=== PATIENT | male | born 1965 | race African-American/Black ===

== ENCOUNTER 2019-06-06 19:52 | Observation (INO) | payer SELFPAY ==
[2019-06-06] MEDS ORDERED: Nitroglycerin 2% Ointment 1 INCH/1 GM Packet ONE (20:29)
[2019-06-06 20:48] LABS: Troponin I Less than 0.010 ng/mL (< 0.028)
[2019-06-06 23:41] LABS: Troponin I Less than 0.010 ng/mL (< 0.028)
[2019-06-07 02:10] VITALS: BMI 19.0
[2019-06-07] MEDS ORDERED: Nitroglycerin 0.4 MG TAB (25 Tab Bottle) PO PRN (02:43)
[2019-06-07] MEDS ORDERED: hydrALAZINE 20 MG/ML VIAL SLOW IVP PRN (02:46)
[2019-06-07] MEDS ORDERED: Ondansetron ODT 4 MG TAB PO PRN (02:46)
[2019-06-07] MEDS ORDERED: Lorazepam 0.5 MG TAB PO PRN (02:46)
[2019-06-07] MEDS ORDERED: Acetaminophen 500 MG TAB PO PRN (02:46)
[2019-06-07] MEDS ORDERED: Labetalol HCl 100 MG/20 ML VIAL SLOW IVP PRN (02:46)
[2019-06-07 02:50] LABS: Troponin I Less than 0.010 ng/mL (< 0.028)
--- NOTE | 2019-06-07 04:49 | HP ---
CHIEF COMPLAINT: Chest pain. HISTORY OF PRESENT ILLNESS: The patient is a 54-year-old male with past medical history significant for a 30 pack-year smoking history and a current 1 pack per day habit, chronic alcoholism, who presented to the hospital with complaints of chest pain. The patient states that the chest pain radiated up into his neck. A family member brought him to the [place] emergency department for further workup and treatment. He was given a sublingual nitroglycerin, which he states did relieve his discomfort. He has had no further discomfort since having nitro paste placed on his chest. A workup on arrival has included an EKG, which shows sinus rhythm with a ventricular rate of 56 beats per minute, along with voltage criteria meeting LVH and early repolarization. His serial troponins have been negative. REVIEW OF SYSTEMS: A 12-point review of systems performed and is negative except as stated above. PAST MEDICAL HISTORY SURGERY: The patient has no known past medical history. He states he does not see a PCP and has not been to the doctor in many years. He has had elevated blood pressure readings this hospitalization and even with nitroglycerin paste on his chest, his systolic blood pressure is 161, I would I do suspect underlying hypertension. He has had no recent blood work. No other known past medical history or past surgical history. Knee lacerations, status post stitching with 18 stitches, no other past surgical history. SOCIAL HISTORY: As mentioned, the patient is a 1 pack per day smoker, with a 30 pack-year total history. He drinks approximately 12 beers per day. He denies illicit drug use. He lives with his aunt in [place] and has a fairly physical job on a farm. He has 2 children. ALLERGIES: NO KNOWN DRUG ALLERGIES. CURRENT MEDICATIONS: None. PHYSICAL EXAMINATION: VITAL SIGNS: Blood pressure 161/93, pulse is 70, O2 saturation is 96% on room air, respirations are 18. GENERAL: This is a thin male with poor dentition, resting comfortably in bed. HEENT: Head atraumatic, normocephalic. Mucous membranes are moist. NECK: Trachea is midline. No JVD. CV: S1 and S2. Regular rate and rhythm. No appreciable murmurs, rubs, or gallops. LUNGS: Regular respiratory rate and pattern, overall clear to auscultation bilaterally. ABDOMEN: Positive bowel sounds. Soft, nontender. EXTREMITIES: No edema. SKIN: Warm and dry. NEUROLOGIC: Cranial nerves 2 through 12 are grossly intact. The patient is nonfocal. Alert and oriented x3. LABORATORY DATA: White blood cell count 12.3, hemoglobin 13.8, hematocrit 43.9, platelets are 319. Sodium 138, potassium 4.1, BUN 8, creatinine 1. AST, ALT normal, alkaline phosphatase 86. Troponin is negative x3. BNP is 26. ASSESSMENT: 1. Chest pain with typical and atypical features, patient does report pain that radiates to the neck and was relieved with nitroglycerin. 2. Current 1 pack per day smoking habit with a 30 pack-year history of tobacco abuse. 3. Abnormal EKG-left ventricular hypertrophy and early repolarization. 4. Chronic alcoholism. 5. Previously undiagnosed hypertension. PLAN: Given the patient's risk factors and presenting symptoms. We will risk stratify with stress test. I also believe that the patient would benefit from an echocardiogram given the impressive LVH noted on his EKG. I suspect this may be a result of untreated hypertension over the years. We will obtain a fasting lipid profile. The patient has been intermittently bradycardic, and so we will start an ARB for blood pressure control. We will continue aspirin 81 mg daily. Given his chronic alcoholism, we will add p.r.n. Ativan for anxiety or any withdrawal symptoms, along with daily thiamine supplement. Further recommendations based on findings of noninvasive testing and hospital course. Job ID: [id number]
[2019-06-07 05:53] LABS: Cardiac Risk 2.5 (Less than 4.5)
[2019-06-07 09:04] LABS: #Basophils 0.1 thou/uL (0.0-0.2); #Eosinphils 0.1 thou/uL (0.0-0.7); #Lymphocytes 2.4 thou/uL (1.20-3.40); #Monocytes 0.9 thou/uL (0.11-0.59); #Neutrophils 4.1 thou/uL (1.40-6.50); %Eosinophils 0.9 % (0.0-10.0); %Lymphocytes 31.6 % (21.0-51.0); %Monocytes 11.4 % (0.0-10.0); %Neutrophils 55.1 % (42.0-75.0); Hemoglobin 14.1 g/dL (14.0-18.0); Mean Corpuscular HGB CONC 33.7 g/dL (32.0-36.0); Mean Corpuscular Hemoglobin 29.3 pg (27.0-31.0); Mean Corpuscular Volume 86.8 fL (78.0-98.0); Mean Platelet Volume 7.2 fL (7.4-10.4); Platelet Count 331 thou/uL (130-400); RBC Distribution Width 11.9 % (11.5-14.5); Red Blood Cell (RBC) Count 4.81 mill/uL (4.70-6.10); White Blood Cell (WBC) Count 7.5 thou/uL (4.8-10.8)
[2019-06-07] MEDS: Thiamine 100 MG TAB PO SCH (09:07)
[2019-06-07] MEDS: Aspirin 81 mg Enteric Coated Tablet PO SCH (09:07)
[2019-06-07] MEDS: Losartan 25 MG TAB PO SCH (09:07)
[2019-06-07 09:15] LABS: ALT (SGPT) 10 U/L (8-55); AST (SGOT) 16 U/L (5-34); Albumin 3.8 g/dL (3.5-5.0); Alkaline Phosphatase 80 U/L (40-150); Anion Gap 15 mmol/L (10-20); BUN (Urea Nitrogen) 8 mg/dL (8.4-25.7); Bilirubin, Total 0.8 mg/dL (0.2-1.2); Calc. Creatinine Clearance 81 mL/min (70-130); Calcium 9.5 mg/dL (7.8-10.44); Carbon Dioxide 22 mmol/L (22-29); Chloride 103 mmol/L (98-107); Estimated GFR-MDRD Greater than 90; Globulin 3.5 g/dL (2.4-3.5); Glucose 83 mg/dL (70-105); Potassium 3.8 mmol/L (3.5-5.1); Protein, Total 7.3 g/dL (6.0-8.3); Sodium 136 mmol/L (136-145)
--- NOTE | 2019-06-07 12:54 | PDOC.HOSPP ---
- Subjective Encounter Date: 06/07/19 Encounter Time: 09:30 Subjective: patient examined, is awaiting Echo and stress test, denies CP, SOB, new complaints - Objective Vital Signs & Weight: Vital Signs (12 hours) Temp Pulse Resp BP BP Pulse Ox 06/07/19 07:35 98.9 F 72 16 154/91 H 98 06/07/19 04:08 98.1 F 58 L 14 138/68 96 06/07/19 01:42 97.5 F L 70 18 161/93 H 96 Weight Weight 60.056 kg I&O: 06/06/19 06/07/19 06/08/19 06:59 06:59 06:59 Intake Total 0 Output Total 300 Balance -300 Result Diagrams: 06/07/19 08:18 06/07/19 08:18 ROS - Review of Systems Cardiovascular: reports: chest pain - Medication Medications: Active Medications Generic Name Dose Route Start Last Admin Trade Name Devonteq PRN Reason Stop Dose Admin Aspirin 81 mg 06/07/19 09:00 06/07/19 09:07 Ecotrin PO 81 mg DAILY BIRDIE Administration Losartan Potassium 25 mg 06/07/19 09:00 06/07/19 09:07 Cozaar PO 25 mg DAILY BIRDIE Administration Thiamine HCl 100 mg 06/07/19 09:00 06/07/19 09:07 Thiamine PO 100 mg DAILY BIRDIE Administration - Exam Eye: PERRL ENT: moist mucosa Neck: supple Heart: RRR Respiratory: CTAB Gastrointestinal: soft, non-tender Extremities: no cyanosis, no edema Skin: normal turgor Neurological: CN's grossly intact Psychiatric: normal affect, A&O x 3 Hosp A/P (1) Chest pain Code(s): R07.9 - CHEST PAIN, UNSPECIFIED Status: Acute (2) Hypertension Code(s): I10 - ESSENTIAL (PRIMARY) HYPERTENSION Status: Chronic (3) Abnormal EKG Code(s): R94.31 - ABNORMAL ELECTROCARDIOGRAM [ECG] [EKG] Status: Acute (4) Tobacco abuse Code(s): Z72.0 - TOBACCO USE Status: Chronic (5) Alcohol abuse Code(s): F10.10 - ALCOHOL ABUSE, UNCOMPLICATED Status: Chronic - Plan Awaiting Echo and Stress test results Troponins x3 negative, labs unremarkable Will continue to monitor Tobacco use counseling provided
[2019-06-07] MEDS ORDERED: Regadenoson 0.4 MG/5 ML SYRINGE ONE (15:00)
--- NOTE | 2019-06-07 16:05 | NM ---
CARDIAC SPECT: 06/07/19 HISTORY: 54-year-old male with chest pain, hypertension, smoker. TECHNIQUE: A myocardial perfusion scan is performed using the single isotope one day protocol with technetium 99 m-Sestamibi. 9 millicuries was injected intravenously for rest followed by 27 millicuries for the str ess study. Pharmacologic test with Lexiscan was monitored and interpreted by Della Camacho NP. FINDINGS: Homogeneous tracer distribution seen in the myocardial segments on stress and rest images Without fix ed or reversible defects. Gated SPECT LVEF: 70%. Wall motion exam: Normal. IMPRESSION: Normal myocardial perfusion scan. POS: [facility]
[2019-06-07] MEDS ORDERED: Atorvastatin Calcium 10 MG TAB PO SCH (21:00)
[2019-06-08 04:47] LABS: #Basophils 0.1 thou/uL (0.0-0.2); #Eosinphils 0.1 thou/uL (0.0-0.7); #Lymphocytes 2.5 thou/uL (1.20-3.40); #Monocytes 0.8 thou/uL (0.11-0.59); %Basophils 1.3 % (0.0-1.0); %Eosinophils 1.1 % (0.0-10.0); %Lymphocytes 33.4 % (21.0-51.0); %Monocytes 10.7 % (0.0-10.0); %Neutrophils 53.5 % (42.0-75.0); Hemoglobin 14.8 g/dL (14.0-18.0); Mean Corpuscular HGB CONC 33.8 g/dL (32.0-36.0); Mean Corpuscular Hemoglobin 29.6 pg (27.0-31.0); Mean Corpuscular Volume 87.6 fL (78.0-98.0); Mean Platelet Volume 7.3 fL (7.4-10.4); Platelet Count 335 thou/uL (130-400); RBC Distribution Width 11.8 % (11.5-14.5); Red Blood Cell (RBC) Count 4.99 mill/uL (4.70-6.10); White Blood Cell (WBC) Count 7.5 thou/uL (4.8-10.8)
[2019-06-08 05:13] LABS: ALT (SGPT) 12 U/L (8-55); AST (SGOT) 14 U/L (5-34); Albumin 3.7 g/dL (3.5-5.0); Alkaline Phosphatase 76 U/L (40-150); Anion Gap 12 mmol/L (10-20); BUN (Urea Nitrogen) 11 mg/dL (8.4-25.7); Bilirubin, Total 0.5 mg/dL (0.2-1.2); Calc. Creatinine Clearance 74 mL/min (70-130); Calcium 9.1 mg/dL (7.8-10.44); Carbon Dioxide 25 mmol/L (22-29); Chloride 103 mmol/L (98-107); Estimated GFR-MDRD Greater than 90; Globulin 3.3 g/dL (2.4-3.5); Glucose 102 mg/dL (70-105); Sodium 136 mmol/L (136-145)
[2019-06-08 07:36] VITALS: BP 134/87; TEMP 97.6
[2019-06-08] MEDS: Aspirin 81 mg Enteric Coated Tablet PO SCH (08:07)
[2019-06-08] MEDS: Losartan 25 MG TAB PO SCH (08:07)
[2019-06-08] MEDS: Thiamine 100 MG TAB PO SCH (08:07)
== END 2019-06-08 16:57 | disposition home or self-care (01) ==
LOC: ERS 19:52 → 2SW 21:45
PROVIDERS: ADMIT Family Medicine; ATTEND Family Medicine
DX: R07.89 Other chest pain (principal); I10 Essential (primary) hypertension; I08.1 Rheumatic disorders of both mitral and tricuspid valves; F17.210 Nicotine dependence, cigarettes, uncomplicated; F10.20 Alcohol dependence, uncomplicated
CPT/HCPCS: 36415; 78452; 80053; 80061; 84484; 85025; 93005; 93017; 93306; A9500; G0378; J2785